=== PATIENT | female | born 1990 | race Caucasian/White ===

== ENCOUNTER 2016-07-10 18:39 | Emergency (ER) | payer OTHER, MEDICAID ==
[~2016-07-10] VITALS: Ht 167.6 cm; Wt 63.5 kg
[2016-07-10 19:27] VITALS: BP 120/72
--- NOTE | 2016-07-10 21:00 | NUR ---
PT.AMBULATED TO ER BED 3
--- NOTE | 2016-07-10 21:08 | NUR ---
Note henryone in EDM - 07/10/16 at 2109 by [facility] 5/F BIB FAMILY C/O BOTH ARMS NUMBNESS, AN HOUR AGO, BACK AND CHEST PAIN FOR A WEEK. AAOx4, PERRLA, BREATHING EVEN AND EFFORTLESS. PAIN 07/28 ONE WEEK INTERMITENT. ERMD NOTIFIED OF PATIENT STATUS.
--- NOTE | 2016-07-10 21:09 | NUR ---
25/F BIB FAMILY C/O BOTH ARMS NUMBNESS, AN HOUR AGO, BACK AND CHEST PAIN FOR A WEEK. AAOx4, PERRLA, BREATHING EVEN AND EFFORTLESS. PAIN 4/10 ONE WEEK INTERMITENT. ERMD NOTIFIED OF PATIENT STATUS.
--- NOTE | 2016-07-10 21:44 | NUR ---
Patient being evaluated by DR. MARCUM at bedside.
--- NOTE | 2016-07-10 22:09 | NUR ---
AUTOMOTIVE MACHINIST APPRENTICE AT BEDSIDE TO TAKE PATIENT TO CT VIA WHEELCHAIR.
--- NOTE | 2016-07-10 22:20 | NUR ---
PT RETURNED FROM CT VIA WHEELCHAIR.
--- NOTE | 2016-07-10 22:26 | NUR ---
Patient appears to be resting comfortably in bed. Vital Signs within normal limits. Respirations even and unlabored.
--- NOTE | 2016-07-10 23:13 | NUR ---
Patient appears to be resting comfortably in bed. Vital Signs within normal limits. Respirations even and unlabored.
[2016-07-11 00:15] VITALS: BP 117/68
--- NOTE | 2016-07-11 00:15 | NUR ---
Patient discharged with v/s stable. Written and verbal after care instructions given and explained. Patient alert, oriented and verbalized understanding of instructions. Ambulatory with steady gait. All questions addressed prior to discharge. ID band removed. Patient advised to follow up with PMD. Rx of PREDNISONE 20MG TABLET given. Patient educated on indication of medication including possible reaction and side effects. Opportunity to ask questions provided and answered.
== END 2016-07-11 00:15 | disposition home or self-care (01) ==
LOC: MED 18:39
DX: G83.24 Monoplegia of upper limb affecting left nondominant side (principal); M54.14 Radiculopathy, thoracic region

== ENCOUNTER 2017-01-02 12:19 | Emergency (ER) | payer OTHER, MEDICAID ==
[~2017-01-02] VITALS: Ht 165.1 cm; Wt 67.4 kg
[2017-01-02 12:21] VITALS: BP 121/78
[2017-01-02] MEDS ORDERED: KETOROLAC 60 MG/2 ML VIAL IM ONE (13:15)
--- NOTE | 2017-01-02 13:16 | NUR ---
PATIENT PRESENT TO ER C/O ABDOMINAL PAIN x LAST NIGHT @ 2000. PT HAS NAUSEA BUT DENIES VOMITING PT STATES SHE HAS HX OF OVARIAN CYST 2014. PAIN 8/10 SHARP CRAMPING RADIATING TO HER LT THIGH. LMP 12/30/2016;HX OF OVARIAN CYST;SKIN IS PINK/WARM/DRY; AAOX4 WITH EVEN AND STEADY GAIT; LUNGS CLEAR BL; HR EVEN AND REGULAR; PT DENIES ANY FEVER, CP, SOB, OR COUGH AT THIS TIME; PATIENT POSITIONED FOR COMFORT; HOB ELEVATED; BEDRAILS UP X2; BED DOWN.ALL MONITORS IN PLACED; ER MD MADE AWARE OF PT STATUS.
--- NOTE | 2017-01-02 13:40 | NUR ---
WENT TO US ACCOMPANIED BY EDDY.
--- NOTE | 2017-01-02 14:30 | NUR ---
BACK FROM US ACCOMPANIED BY EDDY.
[2017-01-02 15:35] VITALS: BP 114/74
--- NOTE | 2017-01-02 15:35 | NUR ---
Patient discharged with v/s stable. Written and verbal after care instructions given and explained. Patient alert, oriented and verbalized understanding of instructions. Ambulatory with steady gait. All questions addressed prior to discharge. ID band removed. Patient advised to follow up with PMD. Rx of NORCO AND MOTRIN given. Patient educated on indication of medication including possible reaction and side effects. Opportunity to ask questions provided and answered.
== END 2017-01-02 15:35 | disposition home or self-care (01) ==
LOC: MED 12:19
DX: N94.89 Other specified conditions associated with female genital organs and menstrual cycle (principal)
CPT/HCPCS: 76856; 81002; 81025; 96372; 99284; J1885

== ENCOUNTER 2018-01-04 12:05 | Emergency (ER) | payer OTHER, MEDICAID ==
[~2018-01-04] VITALS: Ht 165.1 cm; Wt 65.8 kg
[2018-01-04 12:10] VITALS: BP 131/85
--- NOTE | 2018-01-04 12:12 | NUR ---
Patient ambulated to bed 10. RN evaluating patient at bedside.
--- NOTE | 2018-01-04 12:33 | NUR ---
PATIENT BIB SELF C/O VAGINAL BLEEDING AND "HEAVY CRAMPING" X 1 WEEK. +3 WEEKS . LMP 12/07/17. HX: (1 MISCARRIAGE). VSS; PATIENT POSITIONED FOR COMFORT; HOB ELEVATED; BEDRAILS UP X1; BED DOWN. ER MD MADE AWARE OF PT STATUS.
[2018-01-04 13:38] LABS: APPEARANCE,URINE CLEAR (CLEAR); BILIRUBIN,URINE NEGATIVE (NEGATIVE); BLOOD, URINE TRACE-I (NEGATIVE); COLOR,URINE YELLOW (YELLOW); LEUKOCYTE ESTERASE ,URINE TRACE (NEGATIVE); NITRITE, URINE NEGATIVE (NEGATIVE); UGLUCOSE NEGATIVE (NEGATIVE)
[2018-01-04 13:42] LABS: BASOPHILS % (AUTO) 0.2 % (0.0-2.0); EOSINOPHILS % (AUTO) 0.6 % (0.0-4.0); HEMATOCRIT 43.6 % (36-48); HEMOGLOBIN 14.3 g/dL (12.0-16.0); LYMPHOCYTES # (AUTO) 1.6 K/uL (2.5-16.5); LYMPHOCYTES % (AUTO) 22.1 % (20.5-51.1); MEAN CORPUSCULAR HEMOGLOBIN 28 pg (27-31); MEAN CORPUSCULAR HGB CONC 33 g/dL (33-37); MEAN CORPUSCULAR VOLUME 86.5 fL (80-94); MONOCYTES # (AUTO) 0.4 K/uL (0.8-1.0); MONOCYTES % (AUTO) 5.3 % (1.7-9.3); NEUTROPHILS # (AUTO) 5.3 K/uL (1.8-7.7); NEUTROPHILS % (AUTO) 71.8 % (42.2-75.2); PLATELET COUNT (AUTO) 203 K/uL (140-450); RED BLOOD CELL COUNT(AUTO) 5.05 MIL/uL (4.20-5.40); RED CELL DISTRIBUTION WIDTH 14.4 % (11.6-13.7); WHITE BLOOD COUNT (AUTO) 7.4 K/uL (4.8-10.8)
[2018-01-04 13:47] LABS: RBC,URINE 0-5 (RARE) /HPF (0-5)
[2018-01-04 15:29] VITALS: BP 131/85
--- NOTE | 2018-01-04 15:29 | NUR ---
Patient discharged with v/s stable. Written and verbal after care instructions given and explained. Patient verbalized understanding. Ambulatory with steady gait. All questions addressed prior to discharge. Advised to follow up with PMD.
== END 2018-01-04 15:29 | disposition home or self-care (01) ==
LOC: MED 12:05
DX: O03.9 Complete or unspecified spontaneous abortion without complication (principal)
CPT/HCPCS: 36415; 76817; 81001; 84702; 85025; 86900; 86901; 87086; 99285; Q0092

== ENCOUNTER 2018-09-26 13:21 | Emergency (ER) | payer MEDICAID, OTHER ==
[~2018-09-26] VITALS: Ht 165.1 cm; Wt 71.7 kg
[2018-09-26 13:45] VITALS: BP 132/89
--- NOTE | 2018-09-26 13:45 | NUR ---
BIB SELF. AAO X4 C/O THROAT IRRITATION AND DRY COUGH X 2 WEEKS. 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 PT DENIES N/V, SOB, FEVER, PAIN. PT HAS REDNESS TO THE UPPER BACK OF THE THROAT. PT TOOK NIGHTQUIL LAST NIGHT WITH NO RELIEF. HOB UP. BED SIDE RAILS UP X1. ON LOW BED POSITION, LOCKED. ER MADE AWARE OF PT STATUS.
--- NOTE | 2018-09-26 14:00 | NUR ---
DR FLANAGAN AT BEDSIDE FOR PT EVALUATION
[2018-09-26 14:23] VITALS: BP 130/85
--- NOTE | 2018-09-26 14:23 | NUR ---
dPatient discharged with v/s stable. Written and verbal after care instructions given and explained. Patient alert, oriented and verbalized understanding of instructions. Ambulatory with steady gait. All questions addressed prior to discharge. ID band removed. Patient advised to follow up with PMD. Rx of Promethazine Hydrochloride given. Patient educated on indication of medication including possible reaction and side effects. Opportunity to ask questions provided and answered.
== END 2018-09-26 14:23 | disposition home or self-care (01) ==
LOC: MED 13:21
DX: J02.9 Acute pharyngitis, unspecified (principal)
CPT/HCPCS: 81002; 81025; 99283

== ENCOUNTER 2021-03-18 09:57 | Emergency (ER) | payer MEDICAID ==
[~2021-03-18] VITALS: Ht 165.1 cm; Wt 79.9 kg
[2021-03-18 09:57] VITALS: BP 134/64
--- NOTE | 2021-03-18 10:11 | NUR ---
PT AMBULATED BACK INTO LOBBY AT THIS TIME.
--- NOTE | 2021-03-18 10:32 | NUR ---
PT AMBULATED TO ER BED 11
--- NOTE | 2021-03-18 10:42 | NUR ---
30 Y/O BIB SELF FROM HOME C/O RT SHOULDER PAIN X2 WEEKS. PT PRESENTS TO ED WITH RT SHOULDER WEAKNESS AND SHARP PAIN WITH MOVEMENT. PAIN RADIATES TO NECK WELL. PT STATES 8/10 STABBING PAIN UPON MOVEMENT. PT STATES SHOULDER INTERMITTENTLY "LOCKS INTO PLACE" AND IS UNABLE TO MOVE ARM. SKIN WARM AND DRY. 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
--- NOTE | 2021-03-18 10:51 | NUR ---
XRAY AT BEDSIDE
--- NOTE | 2021-03-18 11:02 | NUR ---
DR GODWIN AT BEDSIDE EXAMINING PT
[2021-03-18] MEDS ORDERED: ACET-10509 PO (11:46)
[2021-03-18] MEDS ORDERED: LID5T TP (11:46)
[2021-03-18 11:57] VITALS: BP 134/64
--- NOTE | 2021-03-18 12:00 | NUR ---
Patient discharged with v/s stable. Patient alert, oriented and verbalized understanding of instructions. Ambulatory with steady gait. All questions addressed prior to discharge. ID band removed. Patient advised to follow up with PMD. Rx of ACETAMINOPHEN AND LIDOCAINE HYD given.
== END 2021-03-18 11:57 | disposition home or self-care (01) ==
LOC: MED 09:57
DX: M67.813 Other specified disorders of tendon, right shoulder (principal); X58.XXXA Exposure to other specified factors, initial encounter; Y93.89 Activity, other specified; Y92.89 Other specified places as the place of occurrence of the external cause; Y99.8 Other external cause status
CPT/HCPCS: 73030; 99283; Q0092

== ENCOUNTER 2021-10-29 16:10 | Emergency (ER) | payer MEDICAID ==
[~2021-10-29] VITALS: Ht 165.1 cm; Wt 78.6 kg
[~2021-10-29 16:10] MED LIST: ACET-10509 PO; LID5T TP
[2021-10-29 16:45] VITALS: BP 118/75
--- NOTE | 2021-10-29 17:49 | NUR ---
CHAIR C, LAB DRAWING BLOOD
[2021-10-29 18:23] LABS: BASOPHILS # (AUTO) 0.2 K/uL (0.00-0.22); BASOPHILS % (AUTO) 2.3 % (0.0-2.0); EOSINOPHILS # (AUTO) 0.1 K/uL (0-0.4); EOSINOPHILS % (AUTO) 1.3 % (0.0-4.0); HEMATOCRIT 41.4 % (36-48); HEMOGLOBIN 13.4 g/dL (12.0-16.0); LYMPHOCYTES # (AUTO) 1.4 K/uL (2.5-16.5); MEAN CORPUSCULAR HEMOGLOBIN 28 pg (27-31); MEAN CORPUSCULAR HGB CONC 32 g/dL (33-37); MEAN CORPUSCULAR VOLUME 87.9 fL (80-94); MONOCYTES # (AUTO) 0.6 K/uL (0.8-1.0); MONOCYTES % (AUTO) 5.7 % (1.7-9.3); NEUTROPHILS # (AUTO) 7.5 K/uL (1.8-7.7); NEUTROPHILS % (AUTO) 76.7 % (42.2-75.2); PLATELET COUNT (AUTO) 175 K/uL (140-450); RED BLOOD CELL COUNT(AUTO) 4.71 MIL/uL (4.20-5.40); WHITE BLOOD COUNT (AUTO) 9.8 K/uL (4.8-10.8)
[2021-10-29] MEDS ORDERED: IBUP-2213 PO (19:01)
--- NOTE | 2021-10-29 21:35 | NUR ---
CALLED FOR DISCHARGE, NO ANSWER
--- NOTE | 2021-10-29 21:50 | NUR ---
CALLED FOR DISCHAEGE, NO ANSWER
--- NOTE | 2021-10-29 22:02 | NUR ---
CALLED FOR DISCHARGE, LEFT WITHOUT SIGNING ACI
== END 2021-10-29 22:02 | disposition home or self-care (01) ==
LOC: MED 16:10
DX: N92.0 Excessive and frequent menstruation with regular cycle (principal); Z79.899 Other long term (current) drug therapy
CPT/HCPCS: 36415; 81002; 81025; 85025; 99283

== ENCOUNTER 2021-12-05 05:35 | Emergency (ER) | payer MEDICAID ==
[~2021-12-05] VITALS: Ht 165.1 cm; Wt 77.1 kg
[~2021-12-05 05:35] MED LIST changes: +IBUP-2213 PO
[2021-12-05 05:45] VITALS: BP 127/76
--- NOTE | 2021-12-05 05:45 | NUR ---
TO BED AMBULATORY
--- NOTE | 2021-12-05 06:19 | NUR ---
31/F PRESENTS TO ED WITH C/O LOWER ABDOMINAL CRAMPING AND VAGINAL BLEEDING SINCE LAST NIGHT. PATIENT REPORTS HAVING A POSITIVE TEST LAST WEEK, STATING HX OF 3 PREVIOUS MISCARRIAGES AND BELIEVES SHE IS HAVING ANOTHER. PATIENT IS A3, PATIENT DENIES VISION CHANGES, DIZZINESS, N/V/D, DENIES TAKING MEDS FOR PAIN. PATIENT AOX4, ANSWERING QUESTIONS APPROPRIATELY.
--- NOTE | 2021-12-05 06:56 | NUR ---
US AT BEDSIDE
[2021-12-05 07:04] LABS: BASOPHILS % (AUTO) 0.3 % (0.0-2.0); EOSINOPHILS % (AUTO) 0.3 % (0.0-4.0); LYMPHOCYTES # (AUTO) 1.5 K/uL (2.5-16.5); LYMPHOCYTES % (AUTO) 16.2 % (20.5-51.1); MEAN CORPUSCULAR HEMOGLOBIN 29 pg (27-31); MEAN CORPUSCULAR HGB CONC 33 g/dL (33-37); MEAN CORPUSCULAR VOLUME 86.9 fL (80-94); MONOCYTES # (AUTO) 0.6 K/uL (0.8-1.0); MONOCYTES % (AUTO) 6.4 % (1.7-9.3); NEUTROPHILS # (AUTO) 7.1 K/uL (1.8-7.7); NEUTROPHILS % (AUTO) 76.8 % (42.2-75.2); PLATELET COUNT (AUTO) 185 K/uL (140-450); RED BLOOD CELL COUNT(AUTO) 4.49 MIL/uL (4.20-5.40); WHITE BLOOD COUNT (AUTO) 9.3 K/uL (4.8-10.8)
--- NOTE | 2021-12-05 07:15 | NUR ---
Pt report given to PASTORA Wallace RN. Transfer of care at this time.
[2021-12-05] MEDS ORDERED: IBUP-2213 PO (07:26)
[2021-12-05 07:34] VITALS: BP 117/87
--- NOTE | 2021-12-05 07:36 | NUR ---
Patient discharged with v/s stable. Written and verbal after care instructions given for abd pain and vaginal bleeding and explained. Patient alert, oriented and verbalized understanding of instructions. Ambulatory with steady gait. All questions addressed prior to discharge. ID band removed. Patient advised to follow up with PMD. Rx of ibuprofen given. Patient educated on indication of medication including possible reaction and side effects. Opportunity to ask questions provided and answered.
[2021-12-05 15:03] LABS: APPEARANCE,URINE SL CLOUDY (CLEAR); BILIRUBIN,URINE NEGATIVE (NEGATIVE); BLOOD, URINE 2+ (NEGATIVE); COLOR,URINE YELLOW (YELLOW); LEUKOCYTE ESTERASE ,URINE NEGATIVE (NEGATIVE); NITRITE, URINE NEGATIVE (NEGATIVE); UGLUCOSE NEGATIVE (NEGATIVE)
[2021-12-05 15:24] LABS: CALCIUM OXALATE CRYSTALS,UR 0-10 /HPF (None Seen); WBC,URINE 0-5 /HPF (0-5)
[2021-12-05 15:25] LABS: OTHER CASTS, URINE None Seen /LPF (None Seen)
== END 2021-12-05 07:36 | disposition home or self-care (01) ==
LOC: MED 05:35
DX: O20.8 Other hemorrhage in early pregnancy (principal); Z79.899 Other long term (current) drug therapy; Z3A.01 Less than 8 weeks gestation of pregnancy
CPT/HCPCS: 36415; 76817; 81001; 81025; 84702; 85025; 86900; 86901; 99284; Q0092

== ENCOUNTER 2023-09-09 20:59 | Emergency (ER) | payer OTHER ==
[~2023-09-09] VITALS: Ht 165.1 cm; Wt 76.2 kg
[2023-09-09 21:42] VITALS: BP 138/103; PULSE 84; RESP 16; TEMP 98.4; O2SAT 100
[2023-09-09 22:37] VITALS: BP 135/65
[2023-09-09 22:39] VITALS: O2SAT 100
[2023-09-09] MEDS ORDERED: CYCLOBENZAPRINE 10 MG TAB PO ONE (23:00)
[2023-09-09] MEDS ORDERED: LIDOCAINE 5% 1 EA PATCH TP ONE (23:00)
[2023-09-09] MEDS ORDERED: KETOROLAC 30 MG/ML VIAL IM ONE (23:00)
[2023-09-09 23:13] VITALS: PULSE 83; RESP 19; O2SAT 97
[2023-09-09] MEDS: ALBUTEROL SULFATE/IPRATROPIU 3 ML SOL IH ONE (23:13)
[2023-09-09 23:22] LABS: BASOPHILS % (AUTO) 0.3 % (0.0-2.0); EOSINOPHILS # (AUTO) 0.1 K/uL (0-0.4); EOSINOPHILS % (AUTO) 1.4 % (0.0-4.0); HEMATOCRIT 40.6 % (36-48); HEMOGLOBIN 13.6 g/dL (12.0-16.0); LYMPHOCYTES # (AUTO) 2.1 K/uL (2.5-16.5); LYMPHOCYTES % (AUTO) 22.1 % (20.5-51.1); MEAN CORPUSCULAR HEMOGLOBIN 29 pg (27-31); MEAN CORPUSCULAR HGB CONC 33 g/dL (33-37); MEAN CORPUSCULAR VOLUME 86.5 fL (80-94); MONOCYTES # (AUTO) 0.7 K/uL (0.8-1.0); MONOCYTES % (AUTO) 7.8 % (1.7-9.3); NEUTROPHILS # (AUTO) 6.4 K/uL (1.8-7.7); NEUTROPHILS % (AUTO) 68.4 % (42.2-75.2); PLATELET COUNT (AUTO) 198 K/uL (140-450); RED BLOOD CELL COUNT(AUTO) 4.69 MIL/uL (4.20-5.40); RED CELL DISTRIBUTION WIDTH 13.8 % (11.6-13.7); WHITE BLOOD COUNT (AUTO) 9.3 K/uL (4.8-10.8)
[2023-09-09 23:40] LABS: ANION GAP 13.8 (8-16); CALCIUM 9.1 mg/dL (8.5-10.1); CARBON DIOXIDE 25.8 mmol/L (21-32); CREATININE 0.7 mg/dL (0.6-1.3); POTASSIUM 3.6 mmol/L (3.5-5.1); TOTAL BILIRUBIN 0.4 mg/dL (0.0-1.0); TOTAL PROTEIN, SERUM 7.6 g/dL (6.4-8.2)
[2023-09-10] MEDS ORDERED: BENZ200C4 PO (01:02)
[2023-09-10] MEDS ORDERED: AMOX-1230 PO (01:02)
[2023-09-10] MEDS ORDERED: ALBU0.0912 INH (01:02)
[2023-09-10] MEDS ORDERED: AZIT250T4 PO (01:02)
== END 2023-09-10 01:19 | disposition home or self-care (01) ==
LOC: MED 20:59
DX: J18.9 Pneumonia, unspecified organism (principal); J40 Bronchitis, not specified as acute or chronic; Z79.899 Other long term (current) drug therapy
CPT/HCPCS: 36415; 71045; 80053; 81025; 85025; 85379; 93005; 94640; 99285

== ENCOUNTER 2023-11-10 09:24 | Emergency (ER) | payer OTHER ==
[~2023-11-10] VITALS: Ht 165.1 cm; Wt 76.2 kg
[~2023-11-10 09:24] MED LIST changes: +ALBU0.0912 INH; +AMOX-1230 PO; +AZIT250T4 PO; +BENZ200C4 PO
[2023-11-10 09:33] VITALS: BP 115/70; PULSE 89; RESP 16; TEMP 98; O2SAT 100
[2023-11-10 10:22] LABS: BASOPHILS % (AUTO) 0.3 % (0.0-2.0); EOSINOPHILS % (AUTO) 0.4 % (0.0-4.0); HEMATOCRIT 40.8 % (36-48); HEMOGLOBIN 13.4 g/dL (12.0-16.0); LYMPHOCYTES # (AUTO) 1.6 K/uL (2.5-16.5); LYMPHOCYTES % (AUTO) 19.1 % (20.5-51.1); MEAN CORPUSCULAR HEMOGLOBIN 29 pg (27-31); MEAN CORPUSCULAR HGB CONC 33 g/dL (33-37); MEAN CORPUSCULAR VOLUME 87.9 fL (80-94); MONOCYTES # (AUTO) 0.6 K/uL (0.8-1.0); MONOCYTES % (AUTO) 6.8 % (1.7-9.3); NEUTROPHILS % (AUTO) 73.4 % (42.2-75.2); PLATELET COUNT (AUTO) 193 K/uL (140-450); RED BLOOD CELL COUNT(AUTO) 4.65 MIL/uL (4.20-5.40); RED CELL DISTRIBUTION WIDTH 14.1 % (11.6-13.7); WHITE BLOOD COUNT (AUTO) 8.2 K/uL (4.8-10.8)
[2023-11-10 10:53] LABS: INR 0.94 (0.8-1.2); PROTHROMBIN TIME 9.9 secs (10.8-13.4)
[2023-11-10 10:55] LABS: ANION GAP 7.3 (8-16); CALCIUM 8.7 mg/dL (8.5-10.1); CARBON DIOXIDE 27.4 mmol/L (21-32); CREATININE 0.6 mg/dL (0.6-1.3); POTASSIUM 3.7 mmol/L (3.5-5.1)
[2023-11-10 11:01] LABS: APPEARANCE,URINE CLEAR (CLEAR); BILIRUBIN,URINE NEGATIVE (NEGATIVE); BLOOD, URINE 1+ (NEGATIVE); COLOR,URINE YELLOW (YELLOW); LEUKOCYTE ESTERASE ,URINE NEGATIVE (NEGATIVE); NITRITE, URINE NEGATIVE (NEGATIVE); PH,URINE 7.5 (5.0-9.0); PROTEIN,URINE NEGATIVE (NEGATIVE); UGLUCOSE NEGATIVE (NEGATIVE)
[2023-11-10 11:41] LABS: WBC,URINE 0-5 /HPF (0-5)
[2023-11-10 11:42] LABS: BACTERIA,URINE FEW /HPF (None Seen); SQUAMOUS EPITHELIAL CELL,UR 4-10 (MOD) /LPF (0-3 (FEW))
[2023-11-10 12:25] VITALS: O2SAT 100
[2023-11-10 13:47] VITALS: BP 119/69; PULSE 77; RESP 19; TEMP 98.1
[2023-11-10 14:25] VITALS: O2SAT 100
== END 2023-11-10 15:33 | disposition home or self-care (01) ==
LOC: MED 09:24
DX: O20.0 Threatened abortion (principal); Z3A.01 Less than 8 weeks gestation of pregnancy; Z79.1 Long term (current) use of non-steroidal anti-inflammatories (NSAID); Z79.2 Long term (current) use of antibiotics; Z79.899 Other long term (current) drug therapy
CPT/HCPCS: 36415; 76817; 80048; 81001; 81025; 84702; 85025; 85610; 85730; 86886; 86900; 86901; 99285; Q0092

== ENCOUNTER 2023-12-07 11:39 | Inpatient (IN) | payer OTHER ==
[~2023-12-07] VITALS: Ht 165.1 cm; Wt 71.8 kg
[~2023-12-07 11:39] MED LIST changes: -ACET-10509 PO; +ACET500T99 PO
[2023-12-07 11:42] VITALS: BP 116/78; PULSE 96; RESP 19; TEMP 98.4; O2SAT 98
[2023-12-07] MEDS: NACL 0.9% 1,000 ML IV ONE ×2 (12:35→14:24)
[2023-12-07] MEDS: ONDANSETRON 4 MG/2 ML VIAL IVP ONE ×2 (12:35→14:24)
[2023-12-07 12:43] LABS: APPEARANCE,URINE CLEAR (CLEAR); BILIRUBIN,URINE 1+ (NEGATIVE); BLOOD, URINE 1+ (NEGATIVE); COLOR,URINE YELLOW (YELLOW); LEUKOCYTE ESTERASE ,URINE TRACE (NEGATIVE); NITRITE, URINE NEGATIVE (NEGATIVE); PROTEIN,URINE TRACE (NEGATIVE); UGLUCOSE NEGATIVE (NEGATIVE)
[2023-12-07 12:47] LABS: ICTOTEST NEGATIVE (NEGATIVE)
[2023-12-07 12:50] LABS: BACTERIA,URINE 10-30 (MOD) /HPF (None Seen); BASOPHILS % (AUTO) 0.6 % (0.0-2.0); EOSINOPHILS % (AUTO) 0.1 % (0.0-4.0); HEMATOCRIT 43.4 % (36-48); HEMOGLOBIN 14.5 g/dL (12.0-16.0); LYMPHOCYTES # (AUTO) 1.5 K/uL (2.5-16.5); LYMPHOCYTES % (AUTO) 16.9 % (20.5-51.1); MEAN CORPUSCULAR HEMOGLOBIN 29 pg (27-31); MEAN CORPUSCULAR HGB CONC 33 g/dL (33-37); MEAN CORPUSCULAR VOLUME 86.8 fL (80-94); MONOCYTES # (AUTO) 0.6 K/uL (0.8-1.0); MONOCYTES % (AUTO) 6.7 % (1.7-9.3); MUCUS,URINE 3+ /LPF (None Seen); NEUTROPHILS # (AUTO) 6.7 K/uL (1.8-7.7); NEUTROPHILS % (AUTO) 75.7 % (42.2-75.2); PLATELET COUNT (AUTO) 188 K/uL (140-450); RED CELL DISTRIBUTION WIDTH 13.7 % (11.6-13.7); WHITE BLOOD COUNT (AUTO) 8.9 K/uL (4.8-10.8)
[2023-12-07 12:52] LABS: ANION GAP 16.1 (8-16); CALCIUM 10.1 mg/dL (8.5-10.1); CARBON DIOXIDE 22.5 mmol/L (21-32); CREATININE 0.7 mg/dL (0.6-1.3); POTASSIUM 3.6 mmol/L (3.5-5.1)
[2023-12-07 12:56] LABS: BILIRUBIN,DIRECT 0.3 mg/dL (0.0-0.3); TOTAL BILIRUBIN 0.7 mg/dL (0.0-1.0); TOTAL PROTEIN, SERUM 8.2 g/dL (6.4-8.2)
[2023-12-07] MEDS: METOCLOPRAMIDE 10 MG/2 ML INJ VIAL IVP ONE (13:05)
[2023-12-07] MEDS ORDERED: cefTRIAXone 1,000 MG VIAL ONE (19:12)
[2023-12-07] MEDS: DEXT 5% /NACL 0.9% 1,000 ML IV SCH (19:22)
[2023-12-07] MEDS: ONDANSETRON 4 MG/2 ML VIAL IVP PRN (20:33)
[2023-12-07 20:55] VITALS: PULSE 62; RESP 14; O2SAT 100
[2023-12-07 21:13] VITALS: O2SAT 100
[2023-12-08 04:00] VITALS: BP 96/59; PULSE 60; RESP 18; TEMP 97.4; O2SAT 97
[2023-12-08 07:00] LABS: BASOPHILS % (AUTO) 0.4 % (0.0-2.0); EOSINOPHILS % (AUTO) 0.6 % (0.0-4.0); HEMATOCRIT 35.3 % (36-48); HEMOGLOBIN 12.1 g/dL (12.0-16.0); LYMPHOCYTES # (AUTO) 1.5 K/uL (2.5-16.5); LYMPHOCYTES % (AUTO) 19.8 % (20.5-51.1); MEAN CORPUSCULAR HEMOGLOBIN 30 pg (27-31); MEAN CORPUSCULAR HGB CONC 34 g/dL (33-37); MEAN CORPUSCULAR VOLUME 87.9 fL (80-94); MONOCYTES # (AUTO) 0.6 K/uL (0.8-1.0); MONOCYTES % (AUTO) 7.8 % (1.7-9.3); NEUTROPHILS # (AUTO) 5.5 K/uL (1.8-7.7); NEUTROPHILS % (AUTO) 71.4 % (42.2-75.2); PLATELET COUNT (AUTO) 148 K/uL (140-450); RED BLOOD CELL COUNT(AUTO) 4.01 MIL/uL (4.20-5.40); RED CELL DISTRIBUTION WIDTH 13.4 % (11.6-13.7); WHITE BLOOD COUNT (AUTO) 7.7 K/uL (4.8-10.8)
[2023-12-08 07:19] LABS: ALBUMIN 2.9 g/dL (3.4-5.0); ANION GAP 10.8 (8-16); CALCIUM 8.2 mg/dL (8.5-10.1); CARBON DIOXIDE 24.9 mmol/L (21-32); CREATININE 0.6 mg/dL (0.6-1.3); MAGNESIUM 1.7 mg/dL (1.8-2.4); PHOSPHORUS 2.7 mg/dL (2.5-4.9); POTASSIUM 3.7 mmol/L (3.5-5.1); TOTAL BILIRUBIN 0.7 mg/dL (0.0-1.0)
[2023-12-08 08:00] VITALS: BP 90/60; PULSE 56; RESP 14; RESP 18; TEMP 98.9; O2SAT 100; O2SAT 99
[2023-12-08] MEDS: FOLIC ACID 1 MG TAB PO SCH (08:38)
[2023-12-08] MEDS: MULTIVITAMIN 1 TAB PO SCH (08:38)
[2023-12-08] MEDS: DOCUSATE SODIUM 100 MG GELCAP PO SCH (08:38)
[2023-12-08] MEDS: MAG SULF 2000 MG/WATER PREMIX 50 ML IV SCH (11:18)
[2023-12-08 12:00] VITALS: BP 90/60; PULSE 56; RESP 14; TEMP 98.9; O2SAT 100
[2023-12-08] MEDS: PROCHLORPERAZINE 10 MG/2 ML VIAL IVP PRN (15:34)
[2023-12-08 16:00] VITALS: BP 106/62; PULSE 61; RESP 18; TEMP 97.8; O2SAT 100
[2023-12-08 20:00] VITALS: BP 105/57; PULSE 71; RESP 18; TEMP 97.7; O2SAT 95
[2023-12-09 06:34] LABS: BASOPHILS % (AUTO) 0.6 % (0.0-2.0); EOSINOPHILS # (AUTO) 0.1 K/uL (0-0.4); EOSINOPHILS % (AUTO) 1.2 % (0.0-4.0); HEMATOCRIT 36.5 % (36-48); HEMOGLOBIN 12.1 g/dL (12.0-16.0); LYMPHOCYTES # (AUTO) 1.7 K/uL (2.5-16.5); LYMPHOCYTES % (AUTO) 25.4 % (20.5-51.1); MEAN CORPUSCULAR HEMOGLOBIN 29 pg (27-31); MEAN CORPUSCULAR HGB CONC 33 g/dL (33-37); MEAN CORPUSCULAR VOLUME 87.1 fL (80-94); MONOCYTES # (AUTO) 0.4 K/uL (0.8-1.0); MONOCYTES % (AUTO) 6.3 % (1.7-9.3); NEUTROPHILS # (AUTO) 4.5 K/uL (1.8-7.7); NEUTROPHILS % (AUTO) 66.5 % (42.2-75.2); PLATELET COUNT (AUTO) 146 K/uL (140-450); RED BLOOD CELL COUNT(AUTO) 4.19 MIL/uL (4.20-5.40); RED CELL DISTRIBUTION WIDTH 13.6 % (11.6-13.7); WHITE BLOOD COUNT (AUTO) 6.8 K/uL (4.8-10.8)
[2023-12-09 08:00] VITALS: BP 97/54; PULSE 73; RESP 18; TEMP 97.4; O2SAT 95; O2SAT 98
[2023-12-09] MEDS: ONDANSETRON 4 MG/2 ML VIAL IVP PRN (08:10)
[2023-12-09 16:00] VITALS: BP 111/62; PULSE 71; RESP 18; TEMP 97.9; O2SAT 99
[2023-12-09 20:00] VITALS: BP 114/54; PULSE 87; RESP 18; TEMP 98; O2SAT 99
[2023-12-10 04:00] VITALS: BP 105/60; PULSE 78; RESP 18; TEMP 97.8; O2SAT 98
[2023-12-10] MEDS ORDERED: POTASSIUM CHLORIDE 10 MEQ TABER PO PRN (06:45)
[2023-12-10 06:46] LABS: BASOPHILS % (AUTO) 0.4 % (0.0-2.0); EOSINOPHILS % (AUTO) 0.5 % (0.0-4.0); HEMATOCRIT 37.8 % (36-48); HEMOGLOBIN 12.5 g/dL (12.0-16.0); LYMPHOCYTES # (AUTO) 1.7 K/uL (2.5-16.5); LYMPHOCYTES % (AUTO) 23.9 % (20.5-51.1); MEAN CORPUSCULAR HEMOGLOBIN 29 pg (27-31); MEAN CORPUSCULAR HGB CONC 33 g/dL (33-37); MEAN CORPUSCULAR VOLUME 87.5 fL (80-94); MONOCYTES # (AUTO) 0.5 K/uL (0.8-1.0); MONOCYTES % (AUTO) 7.3 % (1.7-9.3); NEUTROPHILS # (AUTO) 4.7 K/uL (1.8-7.7); NEUTROPHILS % (AUTO) 67.9 % (42.2-75.2); PLATELET COUNT (AUTO) 151 K/uL (140-450); RED BLOOD CELL COUNT(AUTO) 4.32 MIL/uL (4.20-5.40); RED CELL DISTRIBUTION WIDTH 13.6 % (11.6-13.7)
[2023-12-10 06:57] LABS: ANION GAP 15.2 (8-16); CALCIUM 8.8 mg/dL (8.5-10.1); CARBON DIOXIDE 22.5 mmol/L (21-32); CREATININE 0.5 mg/dL (0.6-1.3); POTASSIUM 3.7 mmol/L (3.5-5.1)
[2023-12-10 08:00] VITALS: BP 101/55; PULSE 75; RESP 18; TEMP 97.6; O2SAT 99
[2023-12-10] MEDS: POTASSIUM CHL 20MEQ/D5-NS 1,000 ML IV SCH (09:51)
[2023-12-10] MEDS: MAG SULF 2000 MG/WATER PREMIX 50 ML IV SCH (09:59)
[2023-12-10] MEDS ORDERED: PNV1TABL5 PO (11:15)
[2023-12-10] MEDS ORDERED: ONDA-188 SL (11:15)
[2023-12-10 11:24] VITALS: BP 101/55; PULSE 75; RESP 18; TEMP 97.6
== END 2023-12-10 12:30 | disposition home or self-care (01) | DRG 833 ==
LOC: MED 11:39 → MMU 18:03 → MTU 18:23
PROVIDERS: ADMIT Student in an Organized Health Care Education/Training Program; ATTEND Student in an Organized Health Care Education/Training Program
DX: O21.0 Mild hyperemesis gravidarum (principal); Z3A.08 8 weeks gestation of pregnancy; R82.81 Pyuria
CPT/HCPCS: 36415; 80048; 80053; 80076; 81001; 83690; 83735; 84100; 84443; 85025; 87081; 87086; 96361; 96374; 96375; 96376; 99285; J0696; J0780; J2405; J2765; J3475; J7060

== ENCOUNTER 2023-12-18 00:40 | Emergency (ER) | payer OTHER ==
[~2023-12-18] VITALS: Ht 165.1 cm; Wt 71.7 kg
[~2023-12-18 00:40] MED LIST changes: +ONDA-188 SL; +PNV1TABL5 PO
[2023-12-18 00:59] VITALS: BP 117/80; PULSE 112; RESP 20; TEMP 208.9; TEMP 98.3; O2SAT 98
[2023-12-18 01:43] LABS: APPEARANCE,URINE CLEAR (CLEAR); BILIRUBIN,URINE NEGATIVE (NEGATIVE); BLOOD, URINE NEGATIVE (NEGATIVE); COLOR,URINE YELLOW (YELLOW); LEUKOCYTE ESTERASE ,URINE 1+ (NEGATIVE); NITRITE, URINE NEGATIVE (NEGATIVE); PH,URINE 6.5 (5.0-9.0); PROTEIN,URINE 1+ (NEGATIVE); UGLUCOSE NEGATIVE (NEGATIVE)
--- NOTE | 2023-12-18 01:50 | NUR ---
SEEN AND EXAMINED BY TOÑO WITH ORDERS AND CARRIED OUT.
[2023-12-18 01:52] LABS: BACTERIA,URINE >30 (MANY) /HPF (None Seen); MUCUS,URINE 1+ /LPF (None Seen); RBC,URINE 0-5 /HPF (0-5); SQUAMOUS EPITHELIAL CELL,UR 0-3 (FEW) /LPF (0-3 (FEW))
[2023-12-18] MEDS ORDERED: CEPH-588 PO (02:05)
--- NOTE | 2023-12-18 02:15 | NUR ---
PATIENT WOULD LIKE CRACKERS AND JUICE PRIOR TO TAKING PO MEDS.
[2023-12-18] MEDS: cephALEXin 500 MG CAP PO ONE (02:29)
[2023-12-18] MEDS: ACETAMINOPHEN 325 MG TAB PO ONE (02:30)
--- NOTE | 2023-12-18 02:30 | NUR ---
PATIENT HAS BEEN MEDICATED AND IS TOLERATING WELL. PT REFUSES THE TYLENOL, HELD.
[2023-12-18 02:34] VITALS: O2SAT 98
--- NOTE | 2023-12-18 02:34 | NUR ---
Written and verbal after care instructions given and explained. Patient alert, oriented and verbalized understanding of instructions. Ambulatory with steady gait. All questions addressed prior to discharge. ID band removed. Patient advised to follow up with PMD. Rx given. Patient educated on indication of medication including possible reaction and side effects. Opportunity to ask questions provided and answered.
== END 2023-12-18 02:34 | disposition home or self-care (01) ==
LOC: MED 00:40
DX: O23.41 Unspecified infection of urinary tract in pregnancy, first trimester (principal); N39.0 Urinary tract infection, site not specified; Z3A.10 10 weeks gestation of pregnancy; Z79.1 Long term (current) use of non-steroidal anti-inflammatories (NSAID); Z79.899 Other long term (current) drug therapy
CPT/HCPCS: 81001; 81025; 87086; 99284